=== PATIENT | male | born 1945 | race Caucasian/White ===

== ENCOUNTER → 2018-10-09 | Outpatient (CLI) | payer MEDICARE, BC ==
[~2018-10-09] MED LIST: ADULT LOW DOSE81 MG PO; FOLIC ACID0.8 MG PO; GLIPIZIDE ER5 MG PO; LOPRESSOR50 PO; MILK THISTLE500 MG PO; NORVASC 5 MG TAB5 MG PO; PROAIR HFA8.5 GM INH; SPIRIVA INH; TACROLIMUS1 MG PO; VITAMIN D32000 UNIT PO
== END ==
LOC: M.ULTRA 10:22
DX: K74.60 Unspecified cirrhosis of liver (principal); Z94.4 Liver transplant status